=== PATIENT | female | born 1960 | race Caucasian/White ===

== ENCOUNTER 2017-11-10 23:13 | Emergency (ER) | payer OTHER ==
[~2017-11-10] VITALS: Ht 172.7 cm; Wt 73.4 kg
[2017-11-10] MEDS ORDERED: METFORMIN500 M2 PO (23:23)
[2017-11-10] MEDS ORDERED: ANASTROZOLE1 MG PO (23:23)
[2017-11-10] MEDS ORDERED: OMEPRAZOLE10 MG PO (23:23)
[2017-11-10] MEDS ORDERED: HYZAAR1 TA2 PO (23:24)
[2017-11-11 00:39] LABS: HEMOGLOBIN 13.6 g/dl (12.0-16.0); IMMATURE GRANULOCYTES 0.2 % (0.0-5.0); MEAN CELL VOLUME 94.1 fL CALC (80.0-100.0); NEUT# 6.76 thou/uL (2.00-7.15); RED BLOOD COUNT 4.25 mill/uL (4.20-5.60); RED CELL DISTRI WIDTH 12.9 % (11.5-15.5)
[2017-11-11 00:44] LABS: URINE BILIRUBIN - DIPSTICK NEGATIVE (NEGATIVE); URINE BLOOD DIPSTICK NEGATIVE (NEGATIVE); URINE COLOR YELLOW; URINE GLUCOSE - DIPSTICK NEGATIVE (NEGATIVE); URINE KETONE TRACE mg/dL (NEGATIVE); URINE NITRITE - DIPSTICK NEGATIVE (Negative); URINE PH 5.5 (4.5-8.0); URINE PROTEIN - DIPSTICK TRACE mg/dL (NEG-TRACE); URINE SPECIFIC GRAVITY >=1.030
[2017-11-11 00:48] LABS: URINE CLARITY CLEAR; URINE LEUK ESTERASE SMALL (NEGATIVE)
[2017-11-11 00:55] LABS: ALBUMIN 4.2 g/dL (3.2-5.0); ALKALINE PHOSPHATASE 149 u/l (38-126); AMYLASE 36 u/l (30-110); ANION GAP 17 (6-22 (CALC)); BILIRUBIN, TOTAL 0.8 mg/dL (0.0-1.4); BUN 15 mg/dL (7-17); BUN/CREATININE RATIO 27 (12-20 (CALC)); CARBON DIOXIDE 26 mmol/l (22-30); CHLORIDE 107 mmol/l (95-108); CREATININE 0.5 mg/dL (0.5-1.0); GFR > 60 ML/MIN (>=60 (CALC)); GFR FOR AFR.AMER. > 60 ML/MIN (>=60 (CALC)); LIPASE 121 u/l (23-300); POTASSIUM 4.4 mmol/l (3.5-5.1); SGOT/AST 44 u/l (14-36); SGPT/ALT 42 u/l (9-52); SODIUM 145 mmol/l (137-146); TOTAL PROTEIN 7.9 g/dL (6.3-8.2)
[2017-11-11 01:00] LABS: URINE RBC 0-2 RBC/hpf (0-5); URINE SQUAMOUS EPITHELIAL CELL RARE EPI/hpf (0-FEW)
[2017-11-11] MEDS ORDERED: Levaquin PO (02:16)
[2017-11-11] MEDS ORDERED: METRONIDAZOL500 MG PO (02:16)
[2017-11-11 02:50] VITALS: BP 167/80
== END 2017-11-11 02:55 | disposition left against medical advice (07) | DRG 392 ==
LOC: ED 23:13
PROVIDERS: Emergency Medicine
DX: R10.31 Right lower quadrant pain (principal); R10.32 Left lower quadrant pain; N39.0 Urinary tract infection, site not specified; K52.9 Noninfective gastroenteritis and colitis, unspecified; K57.92 Diverticulitis of intestine, part unspecified, without perforation or abscess without bleeding; E11.9 Type 2 diabetes mellitus without complications; I10 Essential (primary) hypertension; K44.9 Diaphragmatic hernia without obstruction or gangrene; Z85.3 Personal history of malignant neoplasm of breast; Z91.19 Patient's noncompliance with other medical treatment and regimen; Z86.711 Personal history of pulmonary embolism
CPT/HCPCS: S0164

== ENCOUNTER 2020-08-19 16:59 | Emergency (ER) | payer OTHER ==
[~2020-08-19] VITALS: Ht 172.7 cm; Wt 85.0 kg
[~2020-08-19 16:59] MED LIST: ANASTROZOLE1 MG PO; HYZAAR1 TA2 PO; Levaquin PO; METFORMIN500 M2 PO; METRONIDAZOL500 MG PO; OMEPRAZOLE10 MG PO
[2020-08-19] MEDS ORDERED: PRILOSEC20 MG/CAP PO (17:24)
[2020-08-19] MEDS ORDERED: LOSARTAN POTAS100 MG PO (17:25)
[2020-08-19] MEDS ORDERED: AMITRIPTYLIN10 MG PO (17:26)
[2020-08-19] MEDS ORDERED: HYZAAR1 TA2 PO (18:03)
[2020-08-19] MEDS ORDERED: ZOLPIDEM TARTRA10 MG PO (18:04)
[2020-08-19] MEDS ORDERED: KEFLEX500 MG PO (18:29)
[2020-08-19 18:40] VITALS: BP 164/77
== END 2020-08-19 18:40 | disposition home or self-care (01) | DRG 605 ==
LOC: ED 16:59
PROC: 0HQNXZZ Repair Left Foot Skin, External Approach (ICD-10-PCS; principal; 2020-08-19)
DX: S91.012A Laceration without foreign body, left ankle, initial encounter (principal); I10 Essential (primary) hypertension; E11.9 Type 2 diabetes mellitus without complications; W26.8XXA Contact with other sharp object(s), not elsewhere classified, initial encounter; Y93.H2 Activity, gardening and landscaping; Y92.007 Garden or yard of unspecified non-institutional (private) residence as the place of occurrence of the external cause; Z86.711 Personal history of pulmonary embolism